=== PATIENT | male | born 1965 | race Caucasian/White ===

== ENCOUNTER 2025-07-22 09:09 | Inpatient (IN) | payer OTHER, SELFPAY ==
[2025-07-22] VITALS (17 sets, daily range): BP systolic 117–144; BP diastolic 77–105; BMI 22.3; BMI 22.1
--- NOTE | 2025-07-22 06:53 | ED.GENMED ---
History of Present Illness
<Gibson Rowe MD, Resident - Last Filed: 07/22/25 07:33>
General
Chief Complaint: Chest Pain
Time Seen by Provider: 07/22/25 06:25
History of Present Illness
History of Present Illness:
59 yo M PMH rheumatoid arthritis, 40pack year smoker p/w chest pain since 10:30pm last night. It is pressure-like quality on left side that radiates to left arm leading to left arm cramping. It is also associated with burning of R hand fingertips.
It is intermittent, at its worst 8/10 severity, currently 1/10 severity. It is worse with exertion. He reports that coughing can improve the pain.
He also endorses dyspnea. Denies nausea/vomiting. Denies abdominal pain. Denies headaches. Denies dizziness/presyncope.
He took 81mg aspirin and presented to ED for further care.
He was diagnosed with rheumatoid arthritis on Friday and started methotrexate and prednisone then.
PSH cholecystecomty, b/l inguinal hernia
Social:
Cigarette smoker: 40 years, 0.5-1ppd
No etoh
no recreational drugs
Review of Systems
<Gibson Rowe MD, Resident - Last Filed: 07/22/25 07:33>
Review of Systems
Constitutional: Reports no symptoms
EENT: Reports no symptoms
Respiratory: Reports trouble breathing
Cardiac: Reports chest pain
ABD/GI: Reports no symptoms
: Reports no symptoms
Musculoskeletal: Reports no symptoms
Neurological: Reports no symptoms
Phy Exam
<Gibson Rowe MD, Resident - Last Filed: 07/22/25 07:33>
Physical Exam
Physical Exam:
VS 129/90; HR 77; SpO2 94%
General: no acute distress
CV: no murmurs on my exam
Pulm: CTAB
Abd: no tenderness to palpation, possible pulsatility noted over abdomen
MSK: no peripheral edema, ulnar deviation of fingers
Neuro: AOx3, non focal
Scores
<Gibson Rowe MD, Resident - Last Filed: 07/22/25 07:33>
Heart Score for Chest Pain Patients
STEMI patient?: No
History: Highly Suspicious
ECG: Nonspecific Repolarization
Age: >45 - <65 years
Risk Factors: 1 or 2 Risk Factors
Troponin: >1 - <3 x Normal Limit
Heart Score for Chest Pain Patients: 6
Heart Score Risk: 20.3% MACE over next 6 weeks
Course
<Gibson Rowe MD, Resident - Last Filed: 07/22/25 07:33>
Orders/Labs/Results
Orders:
Orders
07/22/25
Electrocardiogram (*1) Stat
Reason for Study: Chest Pain
Comment: DONE
07/22/25 06:13
EKG [Electrocardiogram (*1)] Urgent
Reason for Study: Chest Pain
EKG- Treatment ONCE
07/22/25 06:26
IV Insert/Care/Rem.- Treatment PRN
Aspirin Chewable [Low Strength Aspirin] 324 mg PO NOW STA
Pulse Ox/cont/shift [RESP] Stat
Quantity: 1
07/22/25 06:27
Cardiac Monitoring- Treatment ONCE
07/22/25 06:44
Complete Blood Count/With Diff Urgent
Comprehensive Metabolic Panel Urgent
PTT Urgent
Prothrombin Time Urgent
Troponin I Urgent
07/22/25 06:47
Electrocardiogram (*1) Urgent
EKG- Treatment ONCE
07/22/25 06:56
Nitroglycerin Sublingual [Nitrostat (Sublingual)] 0.4 mg .ROUTE .STK-MED ONE
07/22/25 06:59
Nitroglycerin Sublingual [Nitrostat (Sublingual)] 0.4 mg SL NOW STA
07/22/25 07:16
Heparin 4,000 units IV NOW STA
Pharmacy Request to Place See Dose Instructions PO NOW STA
Discontinue all Active Warfarin orders?: Yes
Nursing to Place Non Medication Order As Directed
Physician Order: PTT 6 hours after initial start of Heparin infusion
07/22/25 08:[address] See Dose Instructions IV DIRECTED
Abnormal Lab Results
07/22/25
06:44
WBC 14.3 H 10^3/uL
(4.8-10.8)
RBC 4.54 L 10^6/uL
(4.70-6.10)
Plt Count 434 H 10^3/uL
(130-400)
Abs Immat Gran (auto) 0.1 H 10^3/uL
(0-0.05)
Absolute Neuts (auto) 9.6 H 10^3/uL
(1.4-6.5)
Absolute Lymphs (auto) 3.8 H 10^3/uL
(1.2-3.4)
Absolute Monos (auto) 0.8 H 10^3/uL
(0.1-0.6)
Immature Gran % 0.6 H %
(0-0.5)
Sodium 130 L mmol/L
(135-145)
Creatinine 0.5 L mg/dL
(0.7-1.3)
Glucose 461 H* mg/dl
(70-99)
Troponin I 0.087 H* ng/ml
Albumin 3.4 L g/dl
(3.5-5.0)
07/22/25 06:44
07/22/25 06:44
Vital Signs
Initial and Last Documented VS:
Initial Vital Signs
Temp Pulse Resp BP Pulse Ox
98.3 F 80 18 128/91 94
07/22/25 06:24 07/22/25 06:24 07/22/25 06:24 07/22/25 06:24 07/22/25 06:24
Last Documented Vital Signs
Temp Pulse Resp BP Pulse Ox
97.9 F 82 16 123/94 94
07/22/25 06:48 07/22/25 07:08 07/22/25 07:08 07/22/25 07:12 07/22/25 06:55
<Juan Maher, DO - Last Filed: 07/22/25 07:19>
Orders/Labs/Results
Orders:
Orders
07/22/25
Electrocardiogram (*1) Stat
Reason for Study: Chest Pain
Comment: DONE
07/22/25 06:13
EKG [Electrocardiogram (*1)] Urgent
Reason for Study: Chest Pain
EKG- Treatment ONCE
07/22/25 06:26
IV Insert/Care/Rem.- Treatment PRN
Aspirin Chewable [Low Strength Aspirin] 324 mg PO NOW STA
Pulse Ox/cont/shift [RESP] Stat
Quantity: 1
07/22/25 06:27
Cardiac Monitoring- Treatment ONCE
07/22/25 06:44
Complete Blood Count/With Diff Urgent
Comprehensive Metabolic Panel Urgent
PTT Urgent
Prothrombin Time Urgent
Troponin I Urgent
07/22/25 06:47
Electrocardiogram (*1) Urgent
EKG- Treatment ONCE
07/22/25 06:56
Nitroglycerin Sublingual [Nitrostat (Sublingual)] 0.4 mg .ROUTE .STK-MED ONE
07/22/25 06:59
Nitroglycerin Sublingual [Nitrostat (Sublingual)] 0.4 mg SL NOW STA
07/22/25 07:16
Heparin 4,000 units IV NOW STA
Pharmacy Request to Place See Dose Instructions PO NOW STA
Discontinue all Active Warfarin orders?: Yes
Nursing to Place Non Medication Order As Directed
Physician Order: PTT 6 hours after initial start of Heparin infusion
07/22/25 08:[address] See Dose Instructions IV DIRECTED
Abnormal Lab Results
07/22/25
06:44
WBC 14.3 H 10^3/uL
(4.8-10.8)
RBC 4.54 L 10^6/uL
(4.70-6.10)
Plt Count 434 H 10^3/uL
(130-400)
Abs Immat Gran (auto) 0.1 H 10^3/uL
(0-0.05)
Absolute Neuts (auto) 9.6 H 10^3/uL
(1.4-6.5)
Absolute Lymphs (auto) 3.8 H 10^3/uL
(1.2-3.4)
Absolute Monos (auto) 0.8 H 10^3/uL
(0.1-0.6)
Immature Gran % 0.6 H %
(0-0.5)
Sodium 130 L mmol/L
(135-145)
Creatinine 0.5 L mg/dL
(0.7-1.3)
Glucose 461 H* mg/dl
(70-99)
Troponin I 0.087 H* ng/ml
Albumin 3.4 L g/dl
(3.5-5.0)
07/22/25 06:44
07/22/25 06:44
Vital Signs
Initial and Last Documented VS:
Initial Vital Signs
Temp Pulse Resp BP Pulse Ox
98.3 F 80 18 128/91 94
07/22/25 06:24 07/22/25 06:24 07/22/25 06:24 07/22/25 06:24 07/22/25 06:24
Last Documented Vital Signs
Temp Pulse Resp BP Pulse Ox
97.9 F 82 16 123/94 94
07/22/25 06:48 07/22/25 07:08 07/22/25 07:08 07/22/25 07:12 07/22/25 06:55
<Gibson Rowe MD, Resident - Last Filed: 07/22/25 07:33>
MDM/Problems Addressed
Differential Diagnosis Includes:
ACS, aortic aneurysm, autoimmune Raynauds, shingles, costochondritis, pulmonary process, GERD
MDM/Problems Addressed:
chest pain, left side, radiates to left arm, worsens with exertion is most concerning for ACS
Initial EKG showed possible diffuse ST elevations with no reciprocal changes
Plan:
CBC, CMP
serial troponin
serial EKG
aspirin 324mg
nitroglycerin for pain
<Gibson Rowe MD, Resident - Last Filed: 07/22/25 07:33>
*Pulse Oximetry
SaO2: 94
Oxygen Mode of Delivery: Room air
Patient hypoxic: no
*Critical Care Note
Total Time (30-74mins, 75-104mins- exclusive of procedures): Not Applicable
<Gibson Rowe MD, Resident - Last Filed: 07/22/25 07:33>
Update Note
Update Note:
Received 324mg aspirin and nitroglycerin. patient reports pain did not improve after nitroglycerin. VS stable s/p nitroglycerin.
molding process technician notified and patient will be taken for catheterization. heparin bolus was given. EKG did not show evidence of STEMI. Initial Troponin elevated 0.087, could indicate evolving ACS. Ticagrelor will not be given in case patient needs to
undergo CABG.
ED Attending Note
<Gibson Rowe MD, Resident - Last Filed: 07/22/25 07:33>
-
Portions of this chart may have been created with voice recognition software.� Occasional wrong word or��sound alike� substitutions may have occurred due to the inherent limitations of voice recognition software.
<Juan Maher, DO - Last Filed: 07/22/25 07:19>
ED Attending Note
Patient seen and examined by attending physician: Yes
I performed a history and physical exam of patient and discussed management with resident, I reviewed resident's note and agree with documented findings and plan of care.: Yes
ED Attending Note:
I reviewed and agree with history treatment plan by Gibson Rowe MD. My exam revealed
Physical Exam
General: no apparent distress, not acutely ill
Neck: supple. no meningeal signs. normal posterior pharynx
Heart: s1/s2 regular rate and rhythm, no murmur. equal radial
pulses.
HEENT: Pupils equal round reactive to light, EOMI
Lungs: no acute respiratory distress. clear bilaterally
Abdomen: normal bowel sounds. not tender. no CVAT
Neuro: alert and oriented. no focal neurological deficits cranial nerves II through XII intact
Skin: no rash
Psychiatric: well kept. interactive and cooperative
Extremities: no edema. no calf tenderness. negative homans. good distal pulses
59-year-old male with unstable angina. ST changes on EKG but not meeting criteria for STEMI. Patient given aspirin and heparin, Dr. Lemon will take to [facility] for cardiac catheter. Michael timmons, in the event patient requires CABG surgery.
Discharge Plan
Departure
Patient Disposition: [facility]
Date of Disposition: 07/22/25
Time of Disposition: 07:15
Admit to: labor relations supervisor
Presentation/result/management discussed w/ accepting /: Ion
Patient with high blood pressure during this ER visit?: Yes
Condition: Fair
Discharge Problem:
Angina pectoris, unstable
Interventions
Interventions:
*General Assessment Last Done: 07/22/25 06:50
*Neglect/Abuse Screening Last Done: 07/22/25 07:10
*ED COVID-19 Vaccine History Last Done: 07/22/25 06:50
*ED Influenza Vaccine History Last Done: 07/22/25 06:50
[facility] Fall Risk Assessment Tool Last Done: 07/22/25 06:49
*Risk Screen - Suicide (C-SSRS) Last Done: 07/22/25 06:24
ED- Cardiac Assessment Last Done: 07/22/25 06:53
Discharge Date and Time
Print Language: TURKISH
[2025-07-22 06:58] LABS: Hematocrit 40.1 % (39.0-52.0); Hemoglobin 13.9 g/dL (13.0-18.0); Mean Corp Hgb Conc. 34.7 g/dL (33.0-37.0); Mean Corpuscular Volume 88.3 fL (80.0-94.0); Nucleated Red Blood Cells % 0 % (-); Platelet Count 434 10^3/uL (130-400); Red Cell Dist. Width 13.6 % (11.5-14.5)
[2025-07-22] MEDS: NITROSTAT (SUBLINGUAL) 0.4 MG SL ×2 (07:07→07:11)
[2025-07-22] MEDS: LOW STRENGTH ASPIRIN 324 MG PO (07:07)
[2025-07-22 07:10] LABS: INR 1.11; PT 14.1 Sec (11.4-14.6)
[2025-07-22 07:11] LABS: APTT 24.8 Sec (23.4-35.0)
[2025-07-22 07:24] LABS: ALT (SGPT) 34 U/L (0-50); AST (SGOT) 22 U/L (17-59); Albumin 3.4 g/dl (3.5-5.0); Alkaline Phosphatase 120 U/L (38-126); Blood Urea Nitrogen 11 mg/dl (9-20); Calcium 9.3 mg/dl (8.4-10.2); Carbon Dioxide 25 mmol/L (22-30); Chloride 98 mmol/L (98-107); Estimated Creatinine Clearance > 125 ml/min; Glucose 461 mg/dl (70-99); Potassium 4.6 mmol/L (3.5-5.1); Sodium 130 mmol/L (135-145); Total Protein 7.1 g/dl (6.3-8.2); eGFR > 60.00
[2025-07-22 07:26] LABS: Troponin I 0.087 ng/ml
[2025-07-22 07:56] LABS: ACT-LR - POC 192 Seconds (116-155)
[2025-07-22 08:06] LABS: ACT-LR - POC 227 Seconds (116-155)
--- NOTE | 2025-07-22 08:09 | CON.CAR ---
Addendum entered and electronically signed by Saud Lemon MD 07/22/25 15:03:
Patient seen and examined. Agree with the note by LEIGH Graf. Patient comfortable getting echo post-PCI. Tele with sinus rhythm, no events. TTE images viewed during contrast injection and suggestive of inferolateral hypokinesis with mildly reduced EF,
formal read pending. Plan:
#Inferior/lateral STEMI s/p emergent LHC with VIANCA to LCx (culprit) and LAD (non-culprit)
- trend serial troponin to peak, Lp(a), lipids
- cont. asa/Brilinta for at least 1 year
- high intensity statin, additional meds for goal LDL<55
- metop for goal HR 60
- start valsartan 40 BID, eventual Entresto and additional GDMT as tolerated (check dapagliflozin and Entresto for cost)
- cardiac rehab consult
#Rheumatoid arthritis - newly diagnosis this week, started on methotrexate and prednisone
- management per hospitalist
#Elevated glucose - A1c 10
- management per hospitalist, should include SGLT2i if affordable
- consideration for GLP1ra as outpatient
#Leukocytosis - afebrile, ? related to LA, check u/a and CXR
#Smoker - Cessation is a must, will offer nicotine patch
Original Note:
Consultation
Consultation Request
Reason for Consultation: STEMI
Medical History
-
Chief Complaint: Chest pain
History of Present Illness:
59 yo WM h/o RA, smoker who developed chest pain radiating to left arm last night around 10:30 with associated SOB and presented to ER this am. EKG with inf/lat BEN and STEMI alert activated. He was given heparin and ASA in ER and brought urgently
to [facility]. On arrival [facility] , he was given brilinta 180mg.
Past Medical History
Past Medical History: Other (Rheumatoid arthritis (new dx this week))
Past Surgical History: Cholecystectomy and Other (inguinal hernia repair)
Social History
Tobacco: Smoker (40pyhx, 0.5-1 ppd)
Alcohol: None
Drug: None
Family History
Family History: Reviewed & Not Pertinent
Allergies / Home Medications
Allergy/AdvReac Type Severity Reaction Status Date / Time
amoxicillin Allergy Anaphylaxis Verified 07/22/25 07:09
�Medication �Instructions �Recorded �Confirmed �Type
Methotrexate (Anti-Rheumatic) 2.5 mg DAILY 07/22/25 07/22/25 History
folic acid 1 mg tablet 1 mg PO HS 07/22/25 07/22/25 History
prednisone See Rx Instructions .Route .COMPLEX 07/22/25 07/22/25 History
Review of Systems
-
Cardiac: Chest Pain (1-2/10 pain on arrival to [facility] for emergent procedure)
Physical Exam
Vital Signs
Temp Pulse Resp BP Pulse Ox
97.9 F 81 16 123/94 94
07/22/25 06:48 07/22/25 07:20 07/22/25 07:20 07/22/25 07:20 07/22/25 06:55
Lab Results
07/22/25 06:44
07/22/25 06:44
Troponin I 0.087 ng/ml H* 07/22/25 06:44
Physical Exam
General: Pain (deferred as pt being prepped and draped on cath table for emergent procedure)
Impression / Plan
-
Primary care physician: Butch Pretty DO
Transportation Attendant: [facility] [place]
Impression/Plan:
#Inferior/lateral STEMI - emergent LHC, serial troponin to peak, Check ECHO today
PCI LCx (culprit) and LAD, DAPT ASA/Brilinta (CM to eval cost)
Check lipids and start high intensity statin, add low dose BB monitor VS
Cardiac rehab c/s, f/u cbc in 2-4 weeks
#Rheumatoid arthritis - newly diagnosis this week, started on methotrexate and prednisone
management per hospitalist
#Elevated glucose - check A1c, most likely due to new medications
#Leukocytosis - afebrile, ? related to LA, check u/a and CXR
#Smoker - Cessation is a must, will offer nicotine patch
Data Reviewed
-
EKG: Discussed with Physician
--- NOTE | 2025-07-22 09:11 | ITS.CL.PN ---
Clinical Registered Nurse - Procedure Note
Procedure
Procedure Note:
CARDIAC CATHETERIZATION REPORT
Date of Procedure: 07/22/2025
Referring: Dr. Juan Maher, DO
Indication: 59 year old man with recently diagnosed rheumatoid arthritis and family history of CAD presenting with chest pain since the evening prior. Found to have lateral ST changes not meeting STEMI criteria on initial EKG. Pain initially
subsided with nitro, but returned and repeat EKG at [address]ations. labor delivery rn was emergently activated for STEMI.
PROCEDURE(S)
1. left heart catheterization
2. coronary angiography
3. PCI with VIANCA to LCx for acute SC
4. IVUS LCx
5. PCI with VIANCA to LAD
6. IVUS LAD
ACCESS: 6F right radial artery (closure: radial band)
CATHETERS
1. 6F JR4
2. 6F JL4
3. 6F EBU3.75 guide
MODERATE SEDATION: 45 minutes of moderate sedation was utilized. An independent medical researcher was present to assist with and help manage the patient's level of consciousness and physiologic status.
HEMODYNAMIC DATA
LV 111/8 (EDP 11) mmHg
AO 131/79 (mean 100) mmHg
CORONARY ANGIOGRAPHY
Dominance: Codominant
LM: large, normal
LAD: large vessel giving rise to a moderate caliber high-rising D1/ramus, small D2, and several distal small diagonal branches before wrapping around the apex. There are serial 40 and 60% stenoses in the mid-LAD just after the D2 and otherwise mild
non-obstructive disease.
LCx: large vessel giving rise to a large OM1, small OM2, small OM3, moderate caliber LPL1, and large LPL2 that gives of a small LPDA. There is a long segment of thrombotic up to 95% stenosis in the mid-LCx between the OM2 and LPL1. This was felt to
be the culprit for the patient's lateral ST elevation SC.
RCA: large vessel giving rise to a moderate caliber RPDA and two small RPL branches. There is mild non-obstructive disease only.
PCI with VIANCA to LCx and LAD
Decision was made to proceed with culprit vessel PCI of the left circumflex for STEMI followed by non-culprit PCI of the mid-LAD for complete revascularization in the setting of STEMI. Additional heparin was given to achieve ACT greater than 300.
The left main was engaged with an EBU3.75 guide catheter. The circumflex lesion was wired with a Runthrough placed in the distal LPL branch. A second Runthrough lyudmila wire was placed in the LAD to allow stability with more proximal guide positioning
given the early angulated takeoff of the circumflex. Initial lesion preparation was performed with a 2.5 mm semicompliant balloon with full expansion. IVUS was performed demonstrating a 4.0 mm distal reference vessel diameter and 4.5 to 4.75 mm
proximal reference vessel diameter with large volume noncalcified plaque and thrombus. Stenting was performed with a 4.0 x 38 mm [place] drug-eluting stent postdilated distally to high-pressure with a 4.0 mm NC balloon and proximally to
high-pressure with a 4.5 mm NC balloon. Given movement of the NC balloon due to the cardiac motion, there was some difficulty in precisely positioning the post dilation balloon at the proximal stent edge, requiring multiple low-pressure inflations
until ideal positioning was achieved. This was confirmed with repeat IVUS, demonstrating full stent expansion and apposition with no edge dissection. Final angiographic result was outstanding. The wiring was left in place and the lyudmila wire in the
LAD advanced distally to the apex. Initial lesion preparation of the LAD was performed with the 2.5 mm semicompliant balloon with full expansion followed by IVUS demonstrating a 3.5 mm distal reference vessel diameter and 3.75 mm proximal reference
vessel diameter with minimal calcification in the lesion. Stenting was performed with a 3.5 x 26 mm [place] drug-eluting stent postdilated distally with a 3.5 mm NC balloon to 16 jayashree and proximally to 18 jayashree. Final IVUS demonstrated full stent
expansion and apposition without edge dissection. Final angiographic result was outstanding. The wires and guide were removed and a TR band placed. The patient remained stable throughout the procedure. Family was updated.
RADIATION: dose 1292 mGy; DAP 88 Gy*cm2; fluoroscopy time 16.6 min
CONCLUSIONS
1. Normal LV filling pressure and no aortic stenosis.
2. Obstructive coronary artery disease as described with culprit 95% stenosis in the mid-LCx and non-culprit 60% stenosis in the mid-LAD.
3. PCI with VIANCA to mid-LCx (4.0x38 mm [place] post-dilated to 4.0 mm distally and 4.5 mm proximally)
4. PCI with VIANCA to mid-LAD (3.5x26 mm [place] post-dilated to 3.5 mm)
RECOMMENDATIONS
1. DAPT with ASA/ticagrelor for at least 1 year
2. Aggressive risk factor modification including high intensity statin and additional lipid lowering medications to achieve LDL<55
3. Metoprolol to target resting HR 60
3. Check lipid panel, Lp(a), A1c
4. Trend troponin to peak
5. TTE, additional GDMT as indicated
7. cardiac rehab
Copy to: Dr. Butch Pretty DO (PCP)
Signed: Saud Lemon MD, PhD
[2025-07-22 09:31] LABS: Glycohemoglobin (HgbA1c) 10.0 % (4.0-5.9)
[2025-07-22 09:45] LABS: Glucose - Point of Care 373 mg/dl (70-99)
[2025-07-22 10:15] LABS: ACT-LR - POC > 397 Seconds (116-155)
--- NOTE | 2025-07-22 10:20 | PN.DE.MGMTRT ---
Insulin Management
- -
07/22/2025: Diabetes Management Consult
59 year old man with recently diagnosed rheumatoid arthritis and family history of CAD presenting with chest pain since the evening prior. Found to have lateral ST changes not meeting STEMI criteria on initial EKG. Pain initially subsided with
nitro, but returned and repeat EKG demonstrated worsening lateral ST elevations. [facility] was emergently activated for STEMI. now s/p PCI with VIANCA to mid- LCx and mid- LAD.
Noted for Hyperglycemia with venous glucose of 461 this morning. A1C 10%, Cr 0.5, eGFR >60
Patient awake, alert, oriented, sitting up in bed, offers no complaints, able to discuss diabetes care plan. Family, ex- and Dtr at bedside
Report that pt has been smoking extensively, has been poorly managing his health and has not been adhering to any particular diet.
His diet consists of processed carbs, fruit smoothies, pastas and cookies. Patient states that he has lost >35lbs since December.
Explained to pt that weight loss is mainly due to poorly controlled diabetes.
He is noted for Hyperglycemia with venous glucose of 461 this morning.
Will start basal bolus insulin. Give NPH 15 units NOW and start Lantus 15 units @ HS.
Will modify diet to zay controlled ADA diet and consult Dietitian for diabetes nutrition counseling.
Start NovoLog 5 units AC, 1st dose at 11:30. Will add Medomin 500mg BID, 2 days post contrast exposure.
Diabetes Nurse has provided and educated on glucose monitor and insulin prep and administration.
Patient to self administer insulin injections with nursing supervision.
Discussed with Nurse. Will cont to follow
Diabetes History
- -
Type of Diabetes: 2 requiring insulin
Pre-Admission Diabetes Regimen
07/22/25
06:44
Creatinine 0.5 L
Lab Results
Hemoglobin A1c 10.0 % (4.0-5.9) H 07/22/25 06:44
Insulin Pump Settings
IP Diabetes Regimen
07/22/25 07/22/25
06:44 09:44
Glucose 461 H*
POC Glucose 373 H
Patient Education
[2025-07-22] MEDS: NICODERM TRANSDERMAL 21 MG TRANSDERM (10:43)
[2025-07-22] MEDS: NOVOLIN N vial 0.15 UNITS SC (10:44)
--- NOTE | 2025-07-22 11:01 | CM ---
priced rolando with [facility]- her copay is $20/month and it is in stock.
--- NOTE | 2025-07-22 11:06 | HPS.HSE ---
Family Physician
-
Family Physician: Butch Pretty
Chief Complaint
-
Chest pain
History of Present Illness
59-year-old male past medical history as below is presenting from home with complaints of chest pain. Patient stated chest pain started last night. Associated with shortness of breath. Patient was recently diagnosed with rheumatoid arthritis and
was started on methotrexate and prednisone. Currently on third pulsed dose prednisone taper regimen. Has extensive smoking history. Patient was taken to the Associate Scientist upon admission. Patient was seen postprocedure. Currently eating breakfast.
Patient denies any chest pain, shortness of breath, nausea, vomiting. States some mild right upper extremity discomfort. States he is new to the diagnosis of diabetes.
Medical History
Past Medical History
Past Medical History: Reports Other
Additional Past Medical History:
Rheumatoid arthritis
Past Surgical History: Reports Other
Additional Past Surgical History:
Cholecystectomy
Inguinal hernia repair
Social History
Tobacco: Smoker (0.5 to 1 pack/day)
Alcohol: Other (Rarely. Last drink was in summer )
Drug: None
Personal:
Living: With Family
Family History
Family History: Not pertinent
Allergies / Home Medications
Allergies reflects when Allergies were last updated in [employer].
Home Medications with original date entered in [employer]
Allergy/Medication List:
Allergies
Allergy/AdvReac Type Severity Reaction Status Date / Time
amoxicillin Allergy Anaphylaxis Verified 07/22/25 07:09
Home Medications
Methotrexate (Anti-Rheumatic) 2.5 mg DAILY 07/22/25
folic acid 1 mg tablet 1 mg PO HS 07/22/25
prednisone See Rx Instructions .Route .COMPLEX 07/22/25
ticagrelor 90 mg tablet 90 mg PO BID #60 tabs 07/22/25
Review of Systems
-
History Source: Patient
A 12 point ROS was completed and negative except as noted: Yes
Physical Exam
Vital Signs
Vital Signs
Temp Pulse Resp BP Pulse Ox
98.6 F 81 16 123/94 95
07/22/25 11:02 07/22/25 07:20 07/22/25 11:02 07/22/25 07:20 07/22/25 11:02
Physical Exam
General: Well Developed, Well Nourished and No Apparent Distress
HEENT: NormoCephalic, Moist mucous membranes and Atraumatic
Respiratory: Clear
Cardiac: S1/S2 and Regular Rhythm; No Murmur or Rub
GI: Soft, Non Tender, Non Distended and Normal Bowel Sounds; No Organomegaly
Rectal: Deferred by Provider
Musculoskeletal: No Clubbing, No Cyanosis, No Edema and Other (Right upper extremity radial band noted.)
Skin: No Rash
Neuro: Awake, Oriented, AO x 3, No Motor Deficits and Nonfocal/grossly intact
Psych: Calm
Laboratory Results
-
07/22/25 06:44
07/22/25 06:44
Laboratory Results
PT 14.1 Sec (11.4-14.6) 07/22/25 06:44
INR 1.11 07/22/25 06:44
APTT 24.8 Sec (23.4-35.0) 07/22/25 06:44
Total Bilirubin 0.4 mg/dl (0.2-1.3) 07/22/25 06:44
AST 22 U/L (17-59) 07/22/25 06:44
ALT 34 U/L (0-50) 07/22/25 06:44
Alkaline Phosphatase 120 U/L (38-126) 07/22/25 06:44
Troponin I 0.087 ng/ml H* 07/22/25 06:44
Data Reviewed
-
Lab Data: Labs Reviewed by me, Discussed with Patient and Discussed with Family
Impression/Plan
-
#Chest pain secondary to inferior/lateral STEMI
Status post emergent cardiac catheterization with PCI to left circumflex and LAD
Patient was started on aspirin and Brilinta
Started on Lipitor. Lipid panel pending
Metoprolol started
Echocardiogram pending
#Diabetes mellitus uncontrolled in the setting of prednisone
Diabetic nurse petitioner consulted
Lantus 15 units before every meal and NovoLog 5 units AC started
Insulin sliding scale and Accu-Cheks
A1c of 10
Needs diabetic education
#Rheumatoid arthritis
Continue prednisone taper regimen
Monitor sugars closely
On methotrexate
#Tobacco abuse
Counseled on cessation.
Nicotine patch
#Leukocytosis likely reactive
Monitor for now
#Hyponatremia likely pseudohyponatremia in the setting of hyperglycemia
Monitor BMP.
DVT ppx-lovenox
d/w with cardiology team
d/w with spouse at bedside
I spent a total of 80 minutes with the patient or on the floor. More than 50% of this time involved counseling and coordination of care.
[2025-07-22 14:05] LABS: Troponin I 0.275 ng/ml
--- NOTE | 2025-07-22 14:16 | CARDSERVLU ---
Echocardiogram with Lumason completed after protocol screening completed. Allergies verified.
Patent IV site: __left FA___
IV site flushed with 0.9% NaCl pre and post administration.
Diluted bolus method utilized to enhance visualization of ventricular plummer.
Total volume given: __2.5__ mL
Patient tolerated all procedures well without complications.
[2025-07-22 14:37] LABS: Glucose - Point of Care 296 mg/dl (70-99)
--- NOTE | 2025-07-22 14:54 | PTCARENOTE ---
07/22/2025 DIABETES EDUCATION CONSULT
I met with patient to review diabetes management. He is inpatient with diagnosis of STEMI with catheterization. He is newly diagnosed with DM wtith an HbA1c of 10%.
I educated on physiology of T2D, organ damage, managing with medications, monitoring BG, nutrition, activity, sleep and managing stress. I reinforced signs of hyperglycemia, hypoglycemia and hypoglycemia protocol; BS parameters and recommended HbA1c
goals, glucometer and CGM instructions, glucose tracker, medic alert bracelet and outpatient DSME program. Written material provided.
I educated and demonstrated on insulin injection technique, timing, and storage. Discussed long and short acting insulin; onset/peak/duration, and encouraged her to administer self injections with RN supervision while admitted. Discussed normal
target glucose ranges and a monitoring schedule 15 minutes before each meal when prescribed Novolog, and before bedtime.
Pt was provided with a new reeplay.it 3+ sensor, assisted pt through process of creating an account in the reeplay.it joan.
Reviewed procedure of sensor applications and identified appropriate areas of sensor placement. Pt identified LUE back of arm as preferred site for insertion. Prepped skin with alcohol and sensor was placed. He states he sleeps on both sides.
Addressed compression low and to double check BS with glucometer..
Reviewed use of mobile device to display glucose readings, alerts, and pre-set low and high glucose levels for hypoglycemia or hyperglycemia awareness.
Sensor was linked to pts smart phone Globe[employer] joan and 60-minute warm up phase was initiated. Discussed trend arrows showing whether glucose values are rising or falling and how fast. Explained predictive alerts and how they alert patient before
reaching preset low or high glucose alert levels.
Discussed alerts for hypoglycemia, discussed hypoglycemia treatment protocol. Instructed pt to check blood sugar via sensor before meals, then inject mealtime insulin in stomach and eat in 10-20 minutes.
I provided patient with a [place] glucometer sample kit. He declined demonstration, both parents had DM and he knows how to use the glucometer. Encouraged patient to follow up with PCP for post d/c appointment and to monitor medication
and blood glucose levels. Provided list of endocrinologists if desired, to contact insurance company to verify in network status. Requested a prescription for blood sugar testing supplies to be sent to his pharmacy on record. Patient verbalized
understanding.
[2025-07-22] MEDS: NOVOLOG FLEXPEN-LOW RESISTANCE 3 UNITS SC (15:15)
[2025-07-22] MEDS: NOVOLOG FLEXPEN 5 UNITS SC ×2 (15:16→18:52)
--- NOTE | 2025-07-22 15:36 | CM ---
Pricing on Farxiga through the patient's [employer] PP, ID# [id number], is $50 for a 30 day supply. He has commercial insurance, I will give him the copay card.
Jardiance is $50 copay.
Entresto will need to be coded with a 0 or the generic is covered at $20 copay. I will give him a copay card
[2025-07-22] MEDS: DELTASONE 10 MG PO ×2 (15:59→23:01)
--- NOTE | 2025-07-22 16:41 | CM ---
pt agreeable to med costs
--- NOTE | 2025-07-22 16:42 | CM ---
spoke to pt in room, he is prev indep, lives alone in a 2 story home with 5 steps to enter. he denies any dc planning needs. plan is for dc to home when medically stable.
[2025-07-22] MEDS: LIPITOR 40 MG PO (18:17)
[2025-07-22 18:18] LABS: Glucose - Point of Care 166 mg/dl (70-99)
--- NOTE | 2025-07-22 18:48 | PTCARENOTE ---
~2350-4213: Received patient from CCL. Pt Aox4, NSR 60s, SBP 110s-120s, RA satting 95%. Pt denies pain at this time. R radial Tr band in place, hand dusky but with +2 pulses noted. Hgb A1C results 10.0, Ekaterina Whitmore WIG SALES CONSULTANT made aware, ACHs ordes
placed an orders to consult diabetes management. Insulin orders followed from land surveying manager. Patient educated on new dx. Nicotine patch ordered by cardiology per patient request. Education given on importance to stop smoking, patient verbalized
understanding. EKG obtained per order. Air began to be removed from TR band around 1045. Admission charting completed and home medications reviewed. Patient oriented to unit and call [facility] system. All needs met at this time, call [facility] within reach.
~7209-3990: Diabetes management/ fast food server in with patient and family to provide diabetes education.
~5085-7591: R radial TR band removed. Site soft, dressing CDI. R hand appears swollen from TR band, hand elevated on pillows.
~[id number]: ECHO completed at bedside. Messaged hospitalist about prednisone taper order, order adjusted.
~2511-4283: Patient independent in room. R radial wrist soft, CDI. Education on nsulin administration provided. Patient talked through and assisted with insulin injection with practice needles, patient demonstrated appropriately. VSS. All needs met
at this time, call [facility] within reach. Handoff report given to nightshift RN.
[2025-07-22] MEDS: NOVOLOG FLEXPEN-LOW RESISTANCE 1 UNITS SC (18:53)
[2025-07-22] MEDS: BRILINTA 90 MG PO (19:33)
[2025-07-22] MEDS: DIOVAN 20 MG PO (19:34)
[2025-07-22] MEDS: LOPRESSOR 12.5 MG PO (19:34)
[2025-07-22 20:39] LABS: Troponin I 0.413 ng/ml
--- NOTE | 2025-07-22 20:59 | PTCARENOTE ---
Received patient at change of shift. SR on the monitor, HR in the 60s. R radial CDI, soft. Denies chest pain. No complaints from pt at this time. call [facility] within reach.
[2025-07-22 22:34] LABS: Glucose - Point of Care 143 mg/dl (70-99)
[2025-07-22] MEDS: LANTUS 0.15 UNITS SC (23:00)
[2025-07-22] MEDS: REMOVE NICOTINE PATCH 1 PATCH REMOVE (23:01)
[2025-07-23 02:11] VITALS: BP 112/82
[2025-07-23 02:33] VITALS: BMI 21.1
[2025-07-23 02:59] LABS: Hematocrit 37.7 % (39.0-52.0); Hemoglobin 13.2 g/dL (13.0-18.0); Mean Corp Hgb Conc. 35.0 g/dL (33.0-37.0); Mean Corpuscular Volume 87.7 fL (80.0-94.0); Platelet Count 370 10^3/uL (130-400); Red Cell Dist. Width 13.8 % (11.5-14.5)
[2025-07-23 03:22] LABS: Blood Urea Nitrogen 13 mg/dl (9-20); Calcium 9.3 mg/dl (8.4-10.2); Carbon Dioxide 25 mmol/L (22-30); Chloride 104 mmol/L (98-107); Estimated Creatinine Clearance > 125 ml/min; Glucose 208 mg/dl (70-99); HDL Cholesterol 44 mg/dl; LDL Cholesterol, Calculated 135 mg/dl; Potassium 4.4 mmol/L (3.5-5.1); Sodium 135 mmol/L (135-145); Very Low Density Lipoprotein 18 mg/dl (0-30); eGFR > 60.00
[2025-07-23 03:36] LABS: Troponin I 0.399 ng/ml
[2025-07-23 07:36] VITALS: BP 120/76
[2025-07-23] MEDS: LOW STRENGTH ASPIRIN 81 MG PO (08:25)
[2025-07-23] MEDS: BRILINTA 90 MG PO ×2 (08:25→19:36)
[2025-07-23] MEDS: LOPRESSOR 12.5 MG PO ×2 (08:25→19:37)
[2025-07-23] MEDS: DIOVAN 20 MG PO ×2 (08:25→19:36)
[2025-07-23] MEDS: DELTASONE 10 MG PO ×3 (08:26→23:17)
[2025-07-23] MEDS: NICODERM TRANSDERMAL 21 MG TRANSDERM (08:26)
[2025-07-23 09:28] LABS: Glucose - Point of Care 145 mg/dl (70-99)
[2025-07-23] MEDS: NOVOLOG FLEXPEN 5 UNITS SC ×3 (10:05→18:34)
[2025-07-23] MEDS: NOVOLOG FLEXPEN-LOW RESISTANCE SC (10:06)
--- NOTE | 2025-07-23 11:22 | W.PN.HOSP.TC ---
Today's Communication/Plan
-
Monitor heart rate
Diabetic education/insulin education
Cardiology recs. Start disposition planning.
Assessment / Plan
Assessment / Plan
General: Well Developed, Well Nourished and No Apparent Distress
HEENT: NormoCephalic, Moist mucous membranes and Atraumatic
Respiratory: Clear
Cardiac: S1/S2 and Regular Rhythm; No Murmur or Rub
GI: Soft, Non Tender, Non Distended and Normal Bowel Sounds; No Organomegaly
Rectal: Deferred by Provider
Musculoskeletal: No Clubbing, No Cyanosis, No Edema
Skin: No Rash
Neuro: Awake, Oriented, AO x 3, No Motor Deficits and Nonfocal/grossly intact
Psych: Calm
#Chest pain secondary to inferior/lateral STEMI
Status post emergent cardiac catheterization with PCI to left circumflex and LAD
Patient was started on aspirin and Brilinta
Started on Lipitor. Lipid panel LDL 135
Metoprolol started 12.5 mg twice daily started. Heart rate low at times. Also started on valsartan per cardiology.
Echocardiogram EF of 55%. Mild to moderate mid inferior septal and anterior lateral/inferior lateral hypokinesis. Right ventricular size and systolic function normal. Aortic sclerosis. PASP 24 mmHg.
#Diabetes mellitus uncontrolled in the setting of prednisone
Diabetic nurse petitioner consulted
Lantus 15 units before every meal and NovoLog 5 units AC started
Insulin sliding scale and Accu-Cheks
A1c of 10
POC AM 145
Received diabetic education. Nursing to further teach and force insulin injection by himself.
#Rheumatoid arthritis
Continue prednisone taper regimen
Monitor sugars closely
On methotrexate
#Tobacco abuse
Counseled on cessation.
Nicotine patch
#Leukocytosis likely steroid
Monitor for now
#Hyponatremia likely pseudohyponatremia in the setting of hyperglycemia
Monitor BMP.
DVT ppx-lovenox
Anticipated Discharge: Within 24 hours
Subjective/Interval History
-
Date of Service: July 23, 2025
learning to give himself insulin shots
Objective Data
-
Labs:
Laboratory Results
07/23/25 07/23/25
02:23 02:24
WBC 15.8 H
Hgb 13.2
Hct 37.7 L
Plt Count 370
Sodium 135
Potassium 4.4
Chloride 104
Carbon Dioxide 25
BUN 13
Creatinine 0.5 L
Glucose 208 H
Calcium 9.3
Vital Signs:
Vital Signs
Temp Pulse Resp BP Pulse Ox
98.3 F 64 18 120/76 95
07/23/25 07:40 07/23/25 07:45 07/23/25 07:40 07/23/25 07:36 07/23/25 07:40
I&O
07/22/25 07/23/25 07/24/25
06:59 06:59 06:59
Output Total 300 / 300
Balance -300 / -300
--- NOTE | 2025-07-23 12:15 | W.PN.CD ---
Addendum entered and electronically signed by Keith Reynoso MD 07/23/25 12:26:
- Possible discharge to home tomorrow if telemetry is stable.
Original Note:
Today's Communication / Plan
-
- Status-post PCI to mLCX (culprit) and mLAD; continue DAPT with ASA/Brilinta.
- Overall preserved LVEF on echocardiogram (EF 55%) with mild to moderate regional wall motion abnormalities.
- LDL is 135 (goal is less than 55); will place on atorvastatin 80 mg daily (was just started on 40 mg daily this hospitalization).
- Telemetry is stable.
Impression / Plan
-
Primary care physician: Butch Pretty DO
Coffee Break Attendant: [facility] [place]
Impression/Plan:
#Inferior/lateral STEMI - emergent LHC, serial troponin to peak
- Status-post PCI to mLCX (culprit) and mLAD; continue DAPT with ASA/Brilinta.
- Overall preserved LVEF on echocardiogram (EF 55%) with mild to moderate regional wall motion abnormalities.
- LDL is 135 (goal is less than 55); will place on atorvastatin 80 mg daily (was just started on 40 mg daily this hospitalization).
- Cardiac rehab c/s.
- Telemetry is stable.
#Rheumatoid arthritis - newly diagnosis this week, started on methotrexate and prednisone
- Management per Hospitalist.
# Diabetes:
- New diagnosis; hemoglobin A1c 10.0.
- Management as per primary team.
#Smoker:
- Counseled on the importance of smoking cessation.
Physical Exam
Vital Signs/Labs
Vital Signs
Temp Pulse Resp BP Pulse Ox
98.3 F 64 18 120/76 95
07/23/25 07:40 07/23/25 07:45 07/23/25 07:40 07/23/25 07:36 07/23/25 07:40
07/22/25 07/23/25 07/24/25
06:59 06:59 06:59
Actual Weight 70.4 kg 66.7 kg
07/23/25 02:23
07/23/25 02:24
PT 14.1 Sec (11.4-14.6) 07/22/25 06:44
INR 1.11 07/22/25 06:44
APTT 24.8 Sec (23.4-35.0) 07/22/25 06:44
Triglycerides 90 mg/dl (10-149) 07/23/25 02:24
LDL Cholesterol, Calc 135 mg/dl 07/23/25 02:24
VLDL Cholesterol, Calc 18 mg/dl (0-30) 07/23/25 02:24
HDL Cholesterol 44 mg/dl 07/23/25 02:24
LAB Results
07/22/25 07/22/25 07/22/25
06:44 13:22 20:06
Troponin I 0.087 H* 0.275 H* D 0.413 H* D
07/23/25
02:24
Troponin I 0.399 H*
Physical Exam
Constitutional: No acute distress and Comfortable
EENT: Anicteric
Cardiovascular: Rhythm & rate is regular, Pedal edema is absent, Systolic murmur absent and S1S2 is normal
Respiratory: Respiratory effort normal and Lungs clear to auscul.
GI: Soft
Neuro/Psych: AO x 3
Other: Skin (warm, dry, intact)
Data Reviewed
-
Date of Service: July 23, 2025
EKG: Tracing Personally Visualized and interpreted (Telemetry: Normal sinus rhythm.)
Echo: Tracing Personally Visualized and interpreted (EF: 55%, mild to moderate mid inferoseptal/anterolateral/inferolateral hypokinesis.)
Labs: Labs Reviewed by me
[2025-07-23 12:57] VITALS: BP 105/81
[2025-07-23 13:02] LABS: Glucose - Point of Care 323 mg/dl (70-99)
[2025-07-23] MEDS: NOVOLOG FLEXPEN-LOW RESISTANCE 4 UNITS SC (13:55)
[2025-07-23 17:21] VITALS: BP 112/80
[2025-07-23] MEDS: LIPITOR 80 MG PO (17:23)
[2025-07-23 18:34] LABS: Glucose - Point of Care 185 mg/dl (70-99)
[2025-07-23] MEDS: NOVOLOG FLEXPEN-LOW RESISTANCE 1 UNITS SC (18:34)
--- NOTE | 2025-07-23 19:30 | PTCARENOTE ---
Received pt @ change of shift. AAOx3, VSS-- NSR on monitor. Pt ambulating in the halls. Right radial site open to air. No swelling, ecchymosis or hematoma present @ this time. Discussed many changes pt has gone through in last week, including new
diabetes, new RA, and stents. Pt seems very overwhelmed with the changes, but motivated to do well. Would like to speak to dietary/librarian helper again, before leaving the hospital. Discussed plan of care. Pt verbalizes understanding. Plan of
care ongoing. Call [facility] within reach.
[2025-07-23 19:36] VITALS: BP 133/85
[2025-07-23 23:12] VITALS: BP 116/89
[2025-07-23 23:19] LABS: Glucose - Point of Care 240 mg/dl (70-99)
[2025-07-23] MEDS: LANTUS 0.15 UNITS SC (23:19)
[2025-07-23] MEDS: REMOVE NICOTINE PATCH REMOVE (23:22)
[2025-07-24 04:26] VITALS: BP 122/93
[2025-07-24 06:09] LABS: Hematocrit 42.3 % (39.0-52.0); Hemoglobin 14.4 g/dL (13.0-18.0); Mean Corp Hgb Conc. 34.0 g/dL (33.0-37.0); Mean Corpuscular Volume 89.1 fL (80.0-94.0); Platelet Count 408 10^3/uL (130-400); Red Cell Dist. Width 13.9 % (11.5-14.5)
[2025-07-24 06:37] LABS: Blood Urea Nitrogen 17 mg/dl (9-20); Calcium 9.1 mg/dl (8.4-10.2); Carbon Dioxide 22 mmol/L (22-30); Chloride 104 mmol/L (98-107); Estimated Creatinine Clearance > 125 ml/min; Glucose 240 mg/dl (70-99); Potassium 4.5 mmol/L (3.5-5.1); Sodium 133 mmol/L (135-145); eGFR > 60.00
[2025-07-24 07:15] VITALS: BP 126/96
[2025-07-24] MEDS: NOVOLOG FLEXPEN 5 UNITS SC (08:06)
[2025-07-24 08:07] LABS: Glucose - Point of Care 232 mg/dl (70-99)
[2025-07-24] MEDS: LOPRESSOR 12.5 MG PO (08:07)
[2025-07-24] MEDS: NOVOLOG FLEXPEN-LOW RESISTANCE 2 UNITS SC (08:07)
[2025-07-24] MEDS: DIOVAN 20 MG PO (08:08)
[2025-07-24] MEDS: BRILINTA 90 MG PO (08:08)
[2025-07-24] MEDS: LOW STRENGTH ASPIRIN 81 MG PO (08:08)
[2025-07-24] MEDS: DELTASONE 10 MG PO (08:08)
[2025-07-24] MEDS: NICODERM TRANSDERMAL 21 MG TRANSDERM (08:10)
--- NOTE | 2025-07-24 10:40 | W.PN.HOSP.TC ---
Today's Communication/Plan
-
dc home
Assessment / Plan
Assessment / Plan
General: Well Developed, Well Nourished and No Apparent Distress
HEENT: NormoCephalic, Moist mucous membranes and Atraumatic
Respiratory: Clear
Cardiac: S1/S2 and Regular Rhythm; No Murmur or Rub
GI: Soft, Non Tender, Non Distended and Normal Bowel Sounds; No Organomegaly
Rectal: Deferred by Provider
Musculoskeletal: No Clubbing, No Cyanosis, No Edema
Skin: No Rash
Neuro: Awake, Oriented, AO x 3, No Motor Deficits and Nonfocal/grossly intact
Psych: Calm
#Chest pain secondary to inferior/lateral STEMI
Status post emergent cardiac catheterization with PCI to left circumflex and LAD
Patient was started on aspirin and Brilinta
Started on Lipitor. Lipid panel LDL 135
Metoprolol started 12.5 mg twice daily started. Heart rate stable. Also started on valsartan per cardiology.
Echocardiogram EF of 55%. Mild to moderate mid inferior septal and anterior lateral/inferior lateral hypokinesis. Right ventricular size and systolic function normal. Aortic sclerosis. PASP 24 mmHg.
#Diabetes mellitus uncontrolled in the setting of prednisone
Diabetic nurse petitioner consulted
Lantus 15 units before every meal and NovoLog 5 units AC started
Insulin sliding scale and Accu-Cheks
A1c of 10
POC AM 232
Received diabetic education. Comfortable giving himself insulin.
start metformin
#Rheumatoid arthritis
Continue prednisone taper regimen
Monitor sugars closely
On methotrexate
#Tobacco abuse
Counseled on cessation.
Nicotine patch
#Leukocytosis likely steroid
Monitor for now
#Hyponatremia likely pseudohyponatremia in the setting of hyperglycemia
Monitor BMP.
DVT ppx-lovenox
More than 30 minutes spent in discharge including
Final examination of the patient
Summarizing hospital stay
Instructions for continuing care to all relevant caregivers
Preparation of discharge records, prescriptions, and referral forms
Total time spent (in minutes): 55
Anticipated Discharge: Today
Subjective/Interval History
-
Date of Service: July 24, 2025
denies cp
Objective Data
-
Labs:
Laboratory Results
07/24/25
04:51
WBC 15.0 H
Hgb 14.4
Hct 42.3
Plt Count 408 H
Sodium 133 L
Potassium 4.5
Chloride 104
Carbon Dioxide 22
BUN 17
Creatinine 0.6 L
Glucose 240 H
Calcium 9.1
Vital Signs:
Vital Signs
Temp Pulse Resp BP Pulse Ox
97.7 F 78 15 126/96 94
07/24/25 08:16 07/24/25 08:15 07/24/25 08:16 07/24/25 08:07 07/24/25 04:26
I&O
07/23/25 07/24/25 07/25/25
06:59 06:59 06:59
Intake Total 960 / 960
Output Total 300 / 300
Balance -300 / -300 960 / 960
--- NOTE | 2025-07-24 10:41 | W.DCSUMMARY ---
Discharge Summary
Discharge Data
Date of Admission: 07/22/25
Date of Discharge: 07/24/25
-
Pending Results: No
Hospital Course
59-year-old male past medical history of recently diagnosed rheumatoid arthritis on methotrexate and prednisone, tobacco abuse who is presenting with chest pain. Patient inferior lateral STEMI status post urgent cardiac catheterization to the left
circumflex and LAD. Post catheterization patient was on aspirin and Brilinta. Patient was started on statin. Patient also with uncontrolled diabetes and was evaluated by diabetic nurse practitioner and was started on basal bolus regimen. Patient
was also started metformin. Patient's sugars elevated at times as patient is on prednisone taper regimen due to rheumatoid arthritis. Patient has continuous glucometer and an additional blood glucometer was given to the patient. Patient was also
sent to metoprolol and losartan. Underwent echocardiogram Echocardiogram EF of 55%. Mild to moderate mid inferior septal and anterior lateral/inferior lateral hypokinesis. Right ventricular size and systolic function normal. Aortic sclerosis.
PASP 24 mmHg. Patient was without any chest pain or shortness of breath. Patient was tolerating diet. Was comfortable and giving himself insulin. Patient be discharged home with outpatient cardiology diabetic and primary doctor follow-up.
Discharge Plan
-
Patient Disposition: Home (Routine Discharge)
Discharge Diagnosis/Procedures: STEMI, Angioplasty with stent to left circumflex and LAD
Diabetes mellitus
Diet: Low Cholesterol and Diabetic, Carb Controlled
Driving Restrictions: No driving for 24 hours
Other Services: Cardiac Rehab
Instructions: Carb counting for adults with diabetes, Low blood sugar in people with diabetes, How to use an insulin pen, Diabetes and heart disease, Diabetes and exercise
Stand Alone Forms: DC Instructions- Cath/EP Lab
Referrals:
[facility]. Cardiac Rehab [Outside] - 08/24/25 1:00 pm
Referral Note: Cardiac Rehab Orientation appointment� and� First Exercise appointment is on _08/24/25 at 1:00 pm.____
The Cardiac Rehab gym is located on the first floor of the [facility].
Saud Lemon MD [Active, Cardiology] - 08/08/25 9:00 am
Butch Pretty DO [Family Provider, Internal Medicine] - in less than 1 week
Prescriptions:
New
ticagrelor 90 mg Tablet
90 mg PO BID Qty: 60 12RF
atorvastatin 80 mg Tablet
80 mg PO QPM Qty: 30 0RF
aspirin 81 mg Tablet,Chewable
81 mg PO DAILY Qty: 30 0RF
valsartan 40 mg Tablet
20 mg PO BID 30 Days Qty: 30 0RF
metoprolol tartrate 25 mg Tablet
12.5 mg PO BID 30 Days Qty: 30 0RF
metformin 500 mg Tablet
500 mg PO BID@0800,1700 Qty: 60 0RF
(DME) Contour Next Test Strips Strip
Qty: 200 0RF
Rx Instructions:
AC & HS
insulin lispro [Humalog KwikPen Insulin] 100 unit/mL Insulin Pen
5 unit SC AC Qty: 5 0RF
insulin glargine [Lantus Solostar U-100 Insulin] 100 unit/mL (3 mL) Insulin Pen
15 unit SC HS Qty: 5 0RF
(DME) pen needle, diabetic [Saida Pen Needle] 32 gauge x ' Needle
Qty: 200 0RF
Rx Instructions:
1 box of 200 needles
AC &HS
Continued
prednisone tablet
See Rx Instructions .ROUTE .COMPLEX
Rx Instructions:
10 mg orally
Take 1 tab Q6H x4 days, then 1 tab Q8H x 4 days, then 1 tab Q12H x 4 days, then 1 tab daily x 4 days and stop
Methotrexate (Anti-Rheumatic)
2.5 mg DAILY
Rx Instructions:
take 4 tabs Wednesday 07/18; then 5 tabs 07/25; 6 tabs 08/01; 7 tabs 1/5. then continue 7 tabs.
folic acid 1 mg Tablet
1 mg PO HS
Discharge Orders:
Discharge Patient (As Directed); Ordered 07/24/25
Ordered By: Gomez Simon
Care Plan Goals
Care Plan Goals:
Problem: Readiness for enhanced knowledge related to diagnosis and treatment plan
Goal: Understand your diagnosis and treatment plan needs, including medications if applicable.
Instructions: Know your diagnosis, underlying causes and treatment plan options, including medications if applicable. Consult with your health care team to learn about your diagnosis and treatment plan, including medications if applicable.
Discharge Date and Time
Discharge Date/Time: 07/24/25 12:00
Print Language: LAO
[2025-07-24 11:02] VITALS: BP 115/74
[2025-07-24 11:04] VITALS: BP 115/74
--- NOTE | 2025-07-24 12:00 | PTCARENOTE ---
~[id number]: Handoff report received from nightshift RN. Pt AOx4, NSR 70s, SBP 120s, RA satting 97%. Pt independent in room. Denies pain at this time. R radial site SPRING MANUFACTURING SET UP TECHNICIAN and soft. Patient requeting to speak to DM educator again prior to DC as he has
some questions about nutrition, Message sent to DM educator. All needs met at this time, call [facility] within reach.
~[id number]: No DM educator on today. Message sent to hospitalist requesting dietition consult for patient's questions. Called kitchen, unfortunately no dietition or Dm educator on today. I recieved phone number for patient to call tomorrow.
~[id number]: DC orders in. Patient and daughter state the preferred pharmacy is closed today and request medication to be sent to another [facility] on [address] [facility] in [place], [place]. Hospitalist made aware and pharmacy added to the chart. DC
paperwork and education reviewed with patient and daughter. All questions answered to the best of my ability and patient and family verbalized understanding.
--- NOTE | 2025-07-24 12:17 | W.PN.CD ---
Today's Communication / Plan
-
- Remains table status-post PCI to mLCX (culprit) and mLAD; continue DAPT with ASA/Brilinta.
- Continue atorvastatin 80 mg daily.
- Telemetry stable during hospitalization; no events.
Impression / Plan
-
Primary care physician: Butch Pretty DO
[employer] [facility] [employer]: [facility] in [place]
Impression/Plan:
#Inferior/lateral STEMI - emergent LHC, serial troponin to peak
- Remains table status-post PCI to mLCX (culprit) and mLAD; continue DAPT with ASA/Brilinta.
- Overall preserved LVEF on echocardiogram (EF 55%) with mild to moderate regional wall motion abnormalities.
- LDL is 135 (goal is less than 55); continue atorvastatin 80 mg daily.
- Cardiac rehab.
- Telemetry stable during hospitalization; no events.
#Rheumatoid arthritis - newly diagnosis this week, started on methotrexate and prednisone
- Management per Hospitalist.
# Diabetes:
- New diagnosis; hemoglobin A1c 10.0.
- Management as per primary team.
#Smoker:
- Counseled on the importance of smoking cessation.
Physical Exam
Vital Signs/Labs
Vital Signs
Temp Pulse Resp BP Pulse Ox
97.9 F 60 20 115/74 96
07/24/25 11:04 07/24/25 11:04 07/24/25 11:04 07/24/25 11:04 07/24/25 11:04
07/23/25 07/24/25 07/25/25
06:59 06:59 06:59
Actual Weight 66.7 kg
07/24/25 04:51
07/24/25 04:51
PT 14.1 Sec (11.4-14.6) 07/22/25 06:44
INR 1.11 07/22/25 06:44
APTT 24.8 Sec (23.4-35.0) 07/22/25 06:44
Triglycerides 90 mg/dl (10-149) 07/23/25 02:24
LDL Cholesterol, Calc 135 mg/dl 07/23/25 02:24
VLDL Cholesterol, Calc 18 mg/dl (0-30) 07/23/25 02:24
HDL Cholesterol 44 mg/dl 07/23/25 02:24
LAB Results
07/22/25 07/22/25 07/22/25
06:44 13:22 20:06
Troponin I 0.087 H* 0.275 H* D 0.413 H* D
07/23/25
02:24
Troponin I 0.399 H*
Physical Exam
Constitutional: No acute distress and Comfortable
EENT: Anicteric
Cardiovascular: Rhythm & rate is regular, Pedal edema is absent, Systolic murmur absent and S1S2 is normal
Respiratory: Respiratory effort normal and Lungs clear to auscul.
GI: Soft
Neuro/Psych: AO x 3
Other: Skin (Warm, dry, intact) and Cath Site (Intact)
Data Reviewed
-
Date of Service: July 24, 2025
EKG: Tracing Personally Visualized and interpreted (Telemetry: Sinus rhythm)
Echo: Tracing Personally Visualized and interpreted (07/22/2025: LVEF 55%, mild to moderate inferoseptal and anterolateral/inferolateral hypokinesis.)
Labs: Labs Reviewed by me
[2025-07-25 11:34] LABS: Lipoprotein a (Lp a) 62 mg/dL (<=29)
== END 2025-07-24 12:00 | disposition home or self-care (01) | DRG 322 ==
LOC: IVU 09:09
PROVIDERS: Nurse Practitioner Adult Health; ADMITTING PHYSICIAN Internal Medicine; ATTENDING PHYSICIAN Hospitalist; CONSULT PHYSICIAN Student in an Organized Health Care Education/Training Program; EMERGENCY PHYSICIAN Emergency Medicine; FAMILY PHYSICIAN Internal Medicine
PROC: B2111ZZ Fluoroscopy of Multiple Coronary Arteries using Low Osmolar Contrast (ICD-10-PCS; 2025-07-22)
PROC: 027135Z Dilation of Coronary Artery, Two Arteries with Two Drug-eluting Intraluminal Devices, Percutaneous Approach (ICD-10-PCS; 2025-07-22)
PROC: 4A023N7 Measurement of Cardiac Sampling and Pressure, Left Heart, Percutaneous Approach (ICD-10-PCS; 2025-07-22)
PROC: B241ZZ3 Ultrasonography of Multiple Coronary Arteries, Intravascular (ICD-10-PCS; 2025-07-22)
DX: I21.21 ST elevation (STEMI) myocardial infarction involving left circumflex coronary artery (principal); E11.65 Type 2 diabetes mellitus with hyperglycemia; F17.210 Nicotine dependence, cigarettes, uncomplicated; I25.10 Atherosclerotic heart disease of native coronary artery without angina pectoris; M06.9 Rheumatoid arthritis, unspecified; D72.829 Elevated white blood cell count, unspecified; I35.8 Other nonrheumatic aortic valve disorders; Z79.52 Long term (current) use of systemic steroids; Z82.49 Family history of ischemic heart disease and other diseases of the circulatory system
CPT/HCPCS: 80048; 80053; 80061; 82962; 83036; 83695; 84484; 85025; 85027; 85347; 85610; 85730; 92978; 93005; 93306; 93458; 94760; 96374; 99152; 99153; 99285; C1725; C1753; C1769; C1874; C9601; C9606; Q9950; Q9967